=== PATIENT | male | born 1955 | race African-American/Black ===

== ENCOUNTER 2021-06-06 22:23 | Emergency (ER) | payer BC, OTHER ==
[~2021-06-06] VITALS: Ht 177.8 cm; Wt 86.2 kg
[2021-06-06] MEDS ORDERED: FLUORESCEIN SOD OPTH TEST STRIP LEFTEYE ONE (23:15)
[2021-06-07 00:55] VITALS: BP 123/74
== END 2021-06-07 01:13 | disposition short-term general hospital (02) ==
LOC: ER 22:23
DX: S05.92XA Unspecified injury of left eye and orbit, initial encounter (principal); H05.20 Unspecified exophthalmos; H57.04 Mydriasis; W22.8XXA Striking against or struck by other objects, initial encounter; Y93.89 Activity, other specified; Y92.89 Other specified places as the place of occurrence of the external cause; Y99.8 Other external cause status
CPT/HCPCS: 70480

== ENCOUNTER 2023-04-23 00:46 | Emergency (ER) | payer BC ==
[~2023-04-23] VITALS: Ht 175.3 cm; Wt 88.6 kg
[2023-04-23] MEDS ORDERED: HYDR-4902 PO (02:19)
[2023-04-23] MEDS: HYDROcodone-ACET 5/325MG TAB PO ONE (03:13)
[2023-04-23] MEDS: DexAMETHasone 4 MG TAB PO ONE (03:13)
[2023-04-23 03:15] VITALS: BP 141/69; PULSE 68; RESP 18; TEMP 98.2; O2SAT 97
== END 2023-04-23 03:21 | disposition home or self-care (01) ==
LOC: ER 00:46
DX: M17.11 Unilateral primary osteoarthritis, right knee (principal); Z79.899 Other long term (current) drug therapy
CPT/HCPCS: 29505; 73562; 99283; J8540

== ENCOUNTER 2023-08-24 22:26 | Emergency (ER) | payer BC ==
[~2023-08-24] VITALS: Ht 177.8 cm; Wt 83.6 kg
[~2023-08-24 22:26] MED LIST: HYDR-4902 PO
[2023-08-24 22:55] VITALS: BP 124/83; PULSE 72; RESP 18; O2SAT 97
[2023-08-25] MEDS ORDERED: ACE3T PO (01:18)
[2023-08-25] MEDS ORDERED: CYCL-837 PO (01:18)
[2023-08-25] MEDS: ONDANSETRON ODT 4 MG TAB PO ONE (01:19)
[2023-08-25] MEDS: HYDROcodone-ACET 10/325MG TAB PO ONE (01:19)
== END 2023-08-25 02:45 | disposition home or self-care (01) ==
LOC: ER 22:26
DX: S16.1XXA Strain of muscle, fascia and tendon at neck level, initial encounter (principal); Z79.1 Long term (current) use of non-steroidal anti-inflammatories (NSAID); Z79.891 Long term (current) use of opiate analgesic; X58.XXXA Exposure to other specified factors, initial encounter; Y93.89 Activity, other specified; Y92.89 Other specified places as the place of occurrence of the external cause; Y99.8 Other external cause status
CPT/HCPCS: 72125; 99284; Q0162

== ENCOUNTER 2024-03-23 00:40 | Emergency (ER) | payer BC ==
[~2024-03-23] VITALS: Ht 175.3 cm; Wt 81.3 kg
[~2024-03-23 00:40] MED LIST changes: +ACE3T PO; +CYCL-837 PO
[2024-03-23 00:46] VITALS: BP 163/76; PULSE 77; RESP 18; O2SAT 97
[2024-03-23] MEDS ORDERED: KETOROLAC TROMETH 30 MG/ML 1ML VIAL IV ONE (01:30)
[2024-03-23] MEDS ORDERED: ONDANSETRON HCL 4 MG/2 ML VIAL IV ONE (01:30)
[2024-03-23] MEDS ORDERED: MORPHINE SULFATE 4 MG/ML SYR/VIAL IV ONE (01:30)
--- NOTE | 2024-03-23 01:43 | ED.PDOC ---
History of Present Illness HPI Comments 69 year old male presents to the ED with RT inguinal hernia onset today around 22:00. Patient states he noticed his hernia "popped out" was not able to reduce it on his own and came to ED. Patient has a follow up appointment tomorrow morning but states pain was increasing and came to ED. Patient states he was flipping tires all day today, got home, was in the shower when he felt the "pop." PMHx of HTN, COPD. Denies chest pain, shortness of breath, nausea, vomiting, diarrhea, headache. No other symptoms or modifying factors present at this time. Chief Complaint: Abdominal Pain Time Seen by MD: 01:25 Primary Care Provider: REGAN Reviewed Notes: Medications Allergies: Coded Allergies: NO KNOWN ALLERGIES (Unverified , 06/06/21) Home Meds Active Scripts Acetaminophen W/ Codeine (Tylenol W/Cod #3) 1 Tab Tb, 1 TAB PO Q6HPRN, #10 TAB 0 Refills Prov:CISCO SNOW 08/25/23 Cyclobenzaprine Hcl (Cyclobenzaprine Hcl) 5 Mg Tab, 1 TAB PO QHSP, #14 TAB 0 Refills Prov:CISCO SNOW 08/25/23 Hydrocodone-Acetaminophen (Hydrocodone Bitartrate/AC 5-325 mg) 1 Tab Tab, 1 TAB PO Q6HPRN PRN, #15 TAB as needed for pain Prov:CHRIST VOSS APPLIED STATISTICIAN 04/23/23 Information Source: Patient, Spouse Mode of Arrival: Ambulatory Severity: Moderate Timing: Hours Duration: Since onset Prehospital treatment: None Past Medical History PAST MEDICAL HISTORY: COPD, HTN Past Medical History (Other): R inguinal hernia Surgical History: Denies all surgeries Family History Family History: Unknown Social History Smoker: Non-Smoker Alcohol: Denies ETOH Use Drugs: Denies Drug Use Lives In: Home Constitutional: denies: chills, diaphoresis, fatigue, fever, malaise, sweats, weakness, others EENTM: denies: blurred vision, double vision, ear bleeding, ear discharge, ear drainage, ear pain, ear ringing, eye pain, eye redness, hearing loss, mouth pain, mouth swelling, nasal discharge, nose bleeding, nose congestion, nose pain, photophobia, tearing, throat pain, throat swelling, voice changes, others Respiratory: denies: cough, hemoptysis, orthopnea, SOB at rest, shortness of breath, SOB with excertion, stridor, wheezing, others Cardiovascular: denies: chest pain, dizzy spells, diaphoresis, Dyspnea on exertion, edema, irregular heart beat, left arm pain, lightheadedness, palpitations, PND, syncope, others Gastrointestinal: denies: abdomen distended, abdominal pain, blood streaked bowels, constipated, diarrhea, dysphagia, difficulty swallowing, hematemesis, melena, nausea, poor appetite, poor fluid intake, rectal bleeding, rectal pain, vomiting, others Genitourinary: reports: others (RT ingunial hernia); denies: burning, dysuria, flank pain, frequency, hematuria, incontinence, penile discharge, penile sore, pain, testicle pain, testicle swelling, urgency Neurological: denies: dizziness, fainting, headache, left sided numbness, left sided weakness, numbness, paresthesia, pre-existing deficit, right sided numbness, right sided weakness, seizure, speech problems, tingling, tremors, weakness, others Musculoskeletal: denies: back pain, gout, joint pain, joint swelling, muscle pain, muscle stiffness, neck pain, others Integumetry: denies: bruises, change in color, change in hair/nails, dryness, laceration, lesions, lumps, rash, wounds, others Allergic/Immunocompromised: denies: Difficulty Healing, Frequent Infections, Hives, Itching, others Hematologic/Lymphatic: denies: anemia, blood clots, easy bleeding, easy bruising, swollen glands, others Endocrine: denies: excessive hunger, excessive sweating, excessive thirst, excessive urination, flushing, intolerance to cold, intolerance to heat, unexplained weight gain, unexplained weight loss, others Psychiatric: denies: anxiety, bipolar disorder, depression, hopeless, panic disorder, schizophrenia, sleepless, suicidal, others All Other Systems: Reviewed and Negative Physical Exam General Appearance: No Apparent Distress HEENT: Other (pupils symmetric, moist mucous membranes) Neck: Full Range of Motion, Normal Inspection Respiratory: Lungs Clear, No Accessory Muscle Use, No Respiratory Distress, Normal Breath Sounds Cardiovascular: No Edema, No JVD, Regular Rate/Rhythm Breast Exam: Deferred Gastrointestinal: Soft, Other (R inguinal hernia, firm, tender, no discoloration) Genitalia: Deferred Pelvic: Deferred Rectal: Deferred Extremities: Normal inspection, Normal range of motion, Non-tender, No pedal edema Neurologic: Alert (Oriented x4), Normal Affect, Normal Mood, Other (Ambulatory without difficulty. No gross focal deficit.) Cerebellar Function: NOT DONE Reflexes: NOT DONE Skin: Dry, Normal Color, Warm Lymphatic: NOT DONE Was a procedure done? Was a procedure done?: No Differential Dx Considerations may include: Incarcerated hernia, strangulated hernia, bowel obstruction, among others X-Ray, Labs, Meds, VS Vital Signs Date Time Temp Pulse Resp B/P (MAP) Pulse Ox O2 Delivery O2 Flow Rate FiO2 03/23/24 00:46 97.7 77 18 163/76 (105) 97 X-Ray, Labs, Meds, VS Comment 69-year-old male with a history of COPD, hypertension and right inguinal hernia complaining of inability to reduce his right inguinal hernia Vitals remarkable for BP 163/76 Exam remarkable for a firm right inguinal hernia which is tender The following medications were ordered for the patient: Morphine 4 mg IV, Zofran 4 mg IV, Toradol 30 mg IV Plan was to provide pain medication, and then attempt reduction of the hernia. When patient was called for medications there was no answer. I called to re- evaluate the patient at 4:32 a.m., and there was no answer. It was assumed the patient had eloped from the ED. Time of 1ST Reevaluation: 01:55 Reevaluation 1ST: Unchanged Patient Education/Counseling: Diagnosis, Treatment, Prognosis Family Education/Counseling: Diagnosis, Treatment, Prognosis Departure 1 Departure Time of Disposition: 04:30 Impression: Primary Impression: Right inguinal hernia Disposition: 07 LEFT AWOL/ELOPED Condition: Fair Discharged With: Spouse Critical Care Note Critical Care Time?: No Stability Stability form required: No Heart Score Heart Score: Heart Score Response (Comments) Value History N/A 0 EKG N/A 0 Age N/A 0 Risk Factors N/A 0 Troponin N/A 0 Total 0 I personally scribed for JUANITO WHELAN MD ([email or web address]) on 03/23/24 at 01:43. Electronically submitted by Rosalind Ayala ([email or web address]). JUANITO WHELAN MD Mar 23, 2024 01:43
== END 2024-03-23 04:55 | disposition left against medical advice (07) ==
LOC: ER 00:40
DX: K40.90 Unilateral inguinal hernia, without obstruction or gangrene, not specified as recurrent (principal); J44.9 Chronic obstructive pulmonary disease, unspecified; I10 Essential (primary) hypertension